=== PATIENT | male | born 1995 | race Caucasian/White ===

== ENCOUNTER 2024-05-01 07:10 | Outpatient (CLI) | payer BC ==
[2024-05-01] MEDS ORDERED: Iopamidol 300 61% 100 ML VIAL FS ONE (10:37)
== END 2024-05-01 07:11 | disposition home or self-care (01) ==
LOC: CSHCT 07:10
PROVIDERS: ATTEND Nurse Practitioner Family
DX: K13.70 Unspecified lesions of oral mucosa (principal); I89.8 Other specified noninfective disorders of lymphatic vessels and lymph nodes
CPT/HCPCS: 70492; Q9967